=== PATIENT | male | born 1935 | race Caucasian/White ===

== ENCOUNTER → 2020-05-26 | Outpatient (CLI) | payer MEDICARE ==
[~2020-05-26] MED LIST: FLOM0.4C39 PO; ISOVUE-370 76% 100ML VIAL As Ordered ONE
--- NOTE | 2020-05-26 14:42 | REP ---
INDICATION: BLADDER MASS, GROSS HEMATURIA. COMPARISON: None TECHNIQUE: Axial precontrast, contrast-enhanced, and delayed images from the lung bases to the pubic symphysis using 100 cc Isovue 370 intravenous contrast material. Coronal and sagittal reformations obtained along with volume rendered 3D CT urogram. This CT examination was performed using the following dose reduction techniques: Automated exposure control, adjustment of mA and/or kv according to the patient's size, and the use of iterative reconstruction technique. FINDINGS: There is grade 5 left-sided hydroureteronephrosis secondary to a large obstructing partially enhancing bladder mass (7.6 x 3.3 x 6.5 cm) which demonstrates small amount of rim calcification and is otherwise nonspecific by appearance. The underlying prostate gland is mildly enlarged and cannot be differentiated from the mass itself raising the possibility of prosthetic origin. No significant adenopathy. The left kidney is otherwise relatively normal in appearance. The right kidney/ureter appears normal. No significant renal cystic changes or nephrolithiasis noted. Liver, spleen, pancreas, gallbladder, and bilateral adrenal glands are normal. The enteric system is without obstruction or acute inflammatory process. Colonic diverticula noted without acute diverticulitis. Pelvis demonstrates bladder and prostate as described above. Small fat containing inguinal hernia noted. No ascites. No obvious adenopathy. Atherosclerotic changes to the aorta and vasculature noted without aneurysm or dissection. Musculoskeletal structures demonstrate age-related osteopenia and degenerative changes. Lung bases demonstrate advanced emphysematous changes with scattered scarring as well as calcified pleural plaques raising the possibility of underlying asbestosis. Large hiatal hernia identified at the gastroesophageal junction. IMPRESSION: 1. Large bladder mass as described above causing left-sided grade 5 hydroureteronephrosis. The right kidney/ureter appear normal. 2. Large hiatal hernia. 3. Further nonacute findings as described above. <Electronically signed by Jacob Pina > 05/26/20 [id number]
== END ==
LOC: M RAD 13:27
PROVIDERS: ATTEND Urology
DX: N32.89 Other specified disorders of bladder (principal); R31.0 Gross hematuria; K44.9 Diaphragmatic hernia without obstruction or gangrene
CPT/HCPCS: 74178; Q9967

== ENCOUNTER 2020-06-07 08:46 | Day surgery (SDC) | payer MEDICARE ==
[~2020-06-07] VITALS: Ht 165.1 cm; Wt 60.7 kg
[~2020-06-07 08:46] MED LIST changes: -ISOVUE-370 76% 100ML VIAL As Ordered ONE; +LR 1,000 ML IV ONE; +ceFAZolin SOD 2 GM in IV 1 EA IV ONE
[2020-06-07] MEDS ORDERED: fentaNYL 100 MCG/2 ML INJECTION (J3010) As Ordered ONE ×2 (09:49→12:06)
[2020-06-07] MEDS ORDERED: ROCURONIUM BROMIDE 50 MG/5 ML VIAL As Ordered ONE (09:49)
[2020-06-07] MEDS ORDERED: METOCLOPRAMIDE INJ 10MG/2ML VIAL (J2765 PER 1) As Ordered ONE (09:49)
[2020-06-07] MEDS ORDERED: LIDOCAINE 2% 100MG/5ML SDV (FOR ANES.) As Ordered ONE (09:49)
[2020-06-07] MEDS ORDERED: propofoL 200 MG/20 ML VIAL As Ordered ONE (09:49)
[2020-06-07] MEDS ORDERED: ONDANSETRON 4MG/2ML VIAL As Ordered ONE (09:49)
[2020-06-07] MEDS ORDERED: LEVALBUTEROL 1.25 MG/0.5 ML CONCENTRATE NEB INH ONE (10:00)
[2020-06-07 10:14] LABS: INR 1.08; PROTHROMBIN TIME 14.2 SECONDS (12.5-14.3)
[2020-06-07 10:15] LABS: PARTIAL THROMBOPLASTIN TIME 25.1 SECONDS (24.2-38.5)
[2020-06-07] MEDS ORDERED: CONRAY-60 60% 50ML VIAL (Q9961) As Ordered ONE (15:12)
--- NOTE | 2020-06-07 16:03 | REP ---
INDICATION: SURGICAL PROCEDURE. COMPARISON: Comparison is made with CT study of the abdomen and pelvis May 26, 2020.. TECHNIQUE: Three views. 51 seconds of fluoroscopy time is reported. FINDINGS: A sequence of 3 last image hold fluoroscopically obtained spot radiographs of the abdomen document left ureteral cannulation, contrast injection, hydronephrosis, and double-pigtail stent placement. No visible laterality marker. IMPRESSION: Procedural imaging. <Electronically signed by Baljit Duke > 06/07/20 [id number]
[2020-06-07] MEDS ORDERED: oxyCODONE 5MG TAB PO PRN (16:30)
[2020-06-07] MEDS ORDERED: fentaNYL 100 MCG/2 ML INJECTION (J3010) IV PRN (16:30)
[2020-06-07] MEDS ORDERED: ONDANSETRON 4MG/2ML VIAL IV PRN (16:30)
[2020-06-07] MEDS ORDERED: ACETAMINOPHEN TAB 650MG DOSE (2X325MG) PO PRN (16:30)
[2020-06-07] MEDS ORDERED: LR 1,000 ML IV SCH (16:30)
--- NOTE | 2020-06-07 17:21 | RO ---
OPERATIVE NOTE DATE OF PROCEDURE: 06/07/2020 PREOPERATIVE DIAGNOSES: Bladder tumor, left hydronephrosis. POSTOPERATIVE DIAGNOSIS: Bladder tumor, left hydronephrosis. PROCEDURE: Cystoscopy, transurethral resection of bladder tumor (greater than 5 cm), left retrograde pyelogram with intraoperative interpreted images, left ureteral stent placement. SURGEON: Matthieu Lance MD BAND CUTTER: None. ANESTHESIA: General. OPERATIVE INDICATIONS: This is an 84-year-old male who was found to have a large bladder tumor on recent CT scan and office cystoscopy. He was brought to the operating room today for treatment. DESCRIPTION OF PROCEDURE: The patient was brought to the operating room and general anesthesia was induced. Prophylactic antibiotics were infused. He was placed in dorsal lithotomy position, prepped and draped in the usual sterile fashion. At this point, a resectoscope was inserted in the urethral meatus and advanced into the bladder using the visual obturator. Of note, as soon as the scope was at the level of the bladder neck, a large bladder tumor was seen and was taking up approximately half of the lumen if not more of the bladder. At this point, I began resecting the tumor carefully starting from the top down until the tumor was completely resected. Throughout the procedure, the tumor chips were removed using a Urovac evacuator. Once the tumor was completely resected, hemostasis was obtained using a plasma button. Of note, after resecting the tumor, I was ultimately able to identify the left ureteral orifice. I advanced a 5 Yemeni open ureteral catheter up the left ureteral orifice and a retrograde pyelogram was performed. It was notable for severe left hydroureteronephrosis with a very tortuous ureter. I then advanced a guidewire up the left kidney. The ureteral catheter was then removed. I then utilized the wire to advance a 7 Yemeni x 22-32 cm J-[id number] ureteral stent up the left collecting system. The wire was removed and there were adequate curls of the stent in the left renal pelvis and in the bladder. After this was done, I once again checked for hemostasis and cauterized any areas of bleeding using the plasma button. Once satisfied with hemostasis, the resectoscope was removed and an 18 Yemeni Balderas catheter was inserted into the bladder. The balloon was filled with 10 mL of sterile water and then the catheter was connected to gravity drainage. This marked the conclusion of the procedure. The patient was taken out of the dorsal lithotomy position, awakened from anesthesia and transported to the recovery room in stable condition. ESTIMATED BLOOD LOSS: 25 mL COMPLICATIONS: None. SPECIMENS: Bladder tumor. PLAN: The patient will follow up in urology clinic in about a week to discuss the pathology results. I will likely leave his catheter in for two weeks given the amount of resection. We will take his stent out in probably 2-3 weeks as well. JALEEL
[2020-06-07] MEDS ORDERED: OXYB5TAB10 PO (17:53)
[2020-06-07] MEDS ORDERED: oxyBUTYnin 5 MG TAB PO PRN (18:15)
[2020-06-07 19:25] VITALS: BP 128/70
== END 2020-06-07 19:25 | disposition home or self-care (01) ==
LOC: M SDC 08:46 → EDUNIT# 11:30 → M SDC 19:25
PROVIDERS: ATTEND Urology
DX: C67.9 Malignant neoplasm of bladder, unspecified (principal); N13.30 Unspecified hydronephrosis; N40.0 Benign prostatic hyperplasia without lower urinary tract symptoms; Z79.899 Other long term (current) drug therapy; Z87.891 Personal history of nicotine dependence
CPT/HCPCS: 36415; 52240; 52332; 74420; 85610; 85730; 86850; 86900; 86901; 88309; C1769; C1887; C2617; J0690; J2405; J2765; J3010; Q9961

== ENCOUNTER → 2020-07-06 | Outpatient (CLI) | payer MEDICARE ==
[~2020-07-06] MED LIST changes: +ALBU83IN INH; +FERR325T3 PO; -LR 1,000 ML IV ONE; +ONDA8TAB10 PO; +OXYB5TAB10 PO; +PROC10TA4 PO; -ceFAZolin SOD 2 GM in IV 1 EA IV ONE
--- NOTE | 2020-07-07 15:15 | REP ---
INDICATION: INITIAL STAGING BLADDER CANCER. Invasive high-grade papillary urothelial carcinoma. COMPARISON: Comparison CT study abdomen and pelvis May 26, 2020. Comparison chest CT study February 05, 2020.. TECHNIQUE: Fifty-one minutes following the intravenous injection of a 8.19 mCi dose of F-18 FDG, three-dimensional PET scintigraphy is acquired from the skull base to the proximal thighs. Triplanar noncontrast CT scanning is acquired through the same anatomic range for attenuation correction, and image registration with scan parameters optimized to minimize radiation exposure to the patient. PET scintigraphy and CT datasets were fused and displayed on a workstation with multiplanar and projection display capability. FINDINGS: Incidental findings include a new right inguinal hernia containing a loop of small intestine. There are few loops of air and fluid-filled small bowel in the central abdomen and the bowel gas pattern is felt to be consistent with small bowel obstruction. The gallbladder surgically absent. There is moderate hydronephrosis and hydroureter affecting the left kidney although this is improved. A sliding-type hiatal hernia is noted. 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 On PET scintigraphy images, head and neck soft tissues are unremarkable. There is no abnormal hypermetabolic pulmonary parenchymal nodule or mass. No hypermetabolic mediastinal or hilar lymphadenopathy is seen. In the abdomen, normal hepatic, splenic, gastrointestinal FDG accumulation is seen. There is a small quantity of postprocedural air in the renal pelvis on the left. There is no hypermetabolic pelvic adenopathy. Physiologic labeling of the urine in the bladder precludes scintigraphic evaluation of the urinary bladder. Accompanying CT study shows that most of the large bladder mass has apparently been resected. No abnormal skeletal hypermetabolic uptake is seen. IMPRESSION: No abnormal hypermetabolic uptake seen on scintigraphy. Improved left-sided hydronephrosis and improvement noted in the bladder mass. No scintigraphic evidence of metastasis. However, there is a new right inguinal hernia containing a small bowel loop and there appears to be evidence of small bowel obstruction. <Electronically signed by Baljit Duke > 07/07/20 [id number]
== END ==
LOC: M PLARAD 12:14
PROVIDERS: ATTEND Internal Medicine Medical Oncology
DX: C67.5 Malignant neoplasm of bladder neck (principal); N13.30 Unspecified hydronephrosis; K44.0 Diaphragmatic hernia with obstruction, without gangrene
CPT/HCPCS: 78815; A9552

== ENCOUNTER → 2020-07-07 | Outpatient (CLI) | payer MEDICARE ==
--- NOTE | 2020-07-07 11:28 | RADONC.CN ---
Radiation Oncology Hx/Consult Radiation Oncology Consult Date of Service: Jul 07, 2020 Pt Identifier Giacomo Romero is a 84 year old male with [id number] bladder cancer s/p TURBT on 06/07/[address] Lance. He is not a cystectomy candidate and so has been referred for consideration of chemoradiation. Diagnosis/Treatment History Oncologic History 2017 Presented to [place] urologist with abdominal pain and hematuria and underwent cystoscopy which revealed a bladder tumor. He was lost to follow up until 2019. He had a CT abdomen on 05/26/20 which showed a >7cm pedunculated mass in the bladder and associated hydronephrosis. He had TURBT on 06/07/20. Muscle invasion was identified on pathology. He had a staging PET-CT on 07/06/19 which is negative for distant disease. Has a large right inguinal hernia containing bowel. IPSS 25 [place] 1 Interval History He is here with his grandson. He has some mild abdominal pain, much better since the TURBT. His catheter has been removed and he is able to void spontaneously. He has a high IPSS, with weak stream a significant component. He has regular BMs but tends toward constipation. He denies fevers, chills, nausea and vomiting. He enjoys motorcycles. Has lost >20 lbs this year. Past Medical History: HTN Talcosis Past Surgical History: Cholecystectomy Family History: Mother pancreatic cancer Social History: 30 pack year former smoker Non-drinker Worked in a [employer] Allergies / Meds Allergies: Coded Allergies: No Known Allergies (Unverified , 05/26/20) Home Meds Active Scripts Ferrous Sulfate (Ferrous Sulfate) 325 Mg Tablet., 325 MG PO 3XW, #40 TAB 1 Refill Prov:ROSS CUNNINGHAM MD 06/22/20 Reported Medications Albuterol Sulf (Albuterol Sulfate) 2.5 Mg/3 Ml Vial.neb, 2.5 MG INH PRN, KITTY 06/22/20 Review of Systems Constitutional: Reports: Weight Loss; Denies: Chills, Fever, Night Sweats Eyes: Denies: Pain, Vision change HEENT: Denies: Head Aches, Dysphagia, Sore Throat Skin: Denies: Rash, Lesions, Bruising Pulmonary: Denies: Dyspnea, Cough Cardiovascular: Denies: Chest Pain, Palpitations, Edema Gastrointestinal: Reports: Abdominal Pain; Denies: Nausea, Vomiting, Diarrhea Genitourinary: Denies: Dysuria, Frequency, Incontinence Hematologic: Denies: Bruising, Petecchia, Enlarged Lymph Nodes Musculoskeletal: Denies: Neck pain, Back pain Neurological: Denies: Weakness, Numbness, Incoordination Psych: Reports: Mood Normal; Denies: Memory Issues, Thoughts of Self Harm Vital Signs Ht 67" Wt 147.6 lb BMI 23 T 99.2 P 73 RR 20 BP 129/77 O2 96% Pain 0 Fatigue 4 General Exam: Positive: Alert, Cooperative, No Acute Distress Eye Exam: Positive: PERRLA, EOMI ENT EXAM: Positive: Mucous membr. moist/pink, Pharynx Normal Neck Exam: Negative: Thyromegaly, Lymphadenopathy Chest Exam: Positive: Normal air movement; Negative: Rales, Rhonchi, Wheezing Heart Exam: Positive: Rate Normal, Regular Rhythm Abdomen Exam: Positive: Normal bowel sounds, Soft; Negative: Tenderness, Mass Extremity Exam: Negative: Edema, Tenderness Skin Exam: Positive: Nl turgor and temperature; Negative: Rash Neuro Exam: Positive: Normal Gait, Normal Speech, Cranial Nerves 3-12 NL Psych Exam: Positive: Mental status NL, Mood NL, Memory Intact Diagnostic and Laboratory Diagnostic Review Radiologic images, relevant labs and pathology reports were personally reviewed and discussed with Mr. Romero. Assessment and Plan Impression Mr. Romero is a 84 year old male former smoker with talc exposure and a history of [id number] bladder cancer s/p TURBT on 06/07/[address] Lance. He is not a cystectomy candidate and so has been referred for consideration of chemoradiation. Stage Stage II [id number] urothelial carcinoma Performance Status ECOG 1 Plan We had an extensive discussion with Mr. Romero regarding the diagnosis at hand and available therapeutic options. He had a very large tumor removed on 06/07/20 it was over [address] from 05/2020. He has no evidence of distant metastases on his PET-CT from 07/06/20. He is not a cystectomy candidate, therefore we discussed chemoradiation as his best option. I recommend 55 Gy in 20 fractions to the whole bladder, as there is no gross disease in the bladder or involved nodes to boost. VMAT is necessary in his case due to low lying small bowel as well as a large right inguinal hernia containing bowel that is in field. Chemotherapy is per Dr. Cunningham. We discussed the logistics of receiving radiation therapy in detail including the need for a 1-time planning session. This can occur in the next week. We discussed side effects including diarrhea, increased urinary frequency, and fatigue. After discussing the risks, benefits and alternatives to radiation therapy, Mr. Romero was amenable to pursuing radiotherapy. All questions were answered to the patient's satisfaction. We instructed the patient that if there were any questions,concerns or changes in clinical status in the interim to contact us. Recommendations Chemoradiation 55 Gy in 20 fractions with VMAT to spare bowel Simulation with empty bladder next week THOMPSON WILLIS MD Jul 07, 2020 11:28
== END ==
LOC: M ONCR 09:55
PROVIDERS: ATTEND General Practice
DX: C67.9 Malignant neoplasm of bladder, unspecified (principal)

== ENCOUNTER 2020-07-30 12:41 | Outpatient (RCR) | payer MEDICARE | END 2020-08-01 | LOC: M ONCR 12:41 | PROVIDERS: ATTEND General Practice | DX: C67.8 Malignant neoplasm of overlapping sites of bladder (principal) ==

== ENCOUNTER 2020-08-24 12:42 | Outpatient (RCR) | payer MEDICARE ==
--- NOTE | 2020-08-20 14:56 | RADENCPD ---
Date/Time of Encounter Date of Encounter: Aug 20, 2020 Time of Encounter: 14:53 Encounter Giacomo asked to be seen for concern of dysuria and frequency of 2 days duration. Going q1h, end stream burning. No fevers, chills, flank or abdominal pain. I am concerned he has a UTI, given his chemotherapy and radiation treatments to the bladder. UA confirms this: Item Value Date Time Urine Color YELLOW 08/20/207 Urine Yeast-Like Cells (Auto) SMALL H 08/20/20 1357 Urine Squamous Epithelial Cells 2 /HPF 08/20/20 1357 Urine Bacteria (Auto) 2+ H 08/20/20 1357 Urine Hyaline Casts (Auto) 0 /LPF 08/20/201356 Urine RBC (Auto) 49 /HPF H 08/20/201356 Urine WBC (Auto) TNTC /HPF H 08/20/20 135 Urine Leukocyte Esterase (Auto) 3+ H 08/20/201356 Urine Urobilinogen 0.2 mg/dL 08/20/20 1357 Urine Nitrite NEGATIVE 08/20/207 Urine Bilirubin NEGATIVE 08/20/207 Urine Blood NEGATIVE 08/20/201356 Urine Ketones (Auto) NEGATIVE mg/dL 08/20/201356 Urine Glucose (Auto)(UA) NEGATIVE mg/dL 08/20/201356 Urine Protein 3+ mg/dL H 08/20/207 Urine pH 5.0 UNITS 08/20/201356 Urine Specific [place] 1.020 08/20/201356 Urine Appearance TURBID H 08/20/20 1357 Will give Bactrim DS empiric (due to age, favor against cipro) 1 tab BID for 7 days Also start Flomax QPM AZO tabs PRN Ensure PO hydration Will reassess Sunday when culture available THOMPSON WILLIS MD Aug 20, 2020 14:56
[~2020-08-24 12:42] MED LIST changes: +BACT800T5 PO; +CINN500C15 PO
== END 2020-08-29 ==
LOC: M ONCR 12:42
PROVIDERS: ATTEND General Practice
DX: C67.8 Malignant neoplasm of overlapping sites of bladder (principal); Z79.899 Other long term (current) drug therapy

== ENCOUNTER 2020-09-28 13:38 | Inpatient (IN) | payer MEDICARE ==
[~2020-09-28] VITALS: Ht 172.7 cm; Wt 58.4 kg
[~2020-09-28 13:38] MED LIST changes: -IPRA0.00 NEB; -NITR100C2 PO; -PROAAER10 INH; -PT COMMENT; -SULF1TAB93; -TAMS1CAP17
[2020-09-28] MEDS ORDERED: NS 1,000 ML IV SCH (13:52)
[2020-09-28] MEDS ORDERED: NS 500 ML IV ONE (13:55)
[2020-09-28] MEDS ORDERED: ONDANSETRON 4MG/2ML VIAL IV ONE (13:55)
[2020-09-28] MEDS ORDERED: NITR100C2 PO (14:01)
[2020-09-28] MEDS ORDERED: TAMS1CAP17 (14:01)
[2020-09-28] MEDS ORDERED: SULF1TAB93 (14:01)
[2020-09-28] MEDS: MORPHINE 2 MG/ML 1ML VIAL (J2270) IV PRN ×2 (14:04→15:38)
[2020-09-28 14:24] LABS: BASO # 0.1 10^3/uL (0.0-0.2); BASO % 0.9 % (0.0-1.0); EOS # 0.2 10^3/uL (0.0-0.5); HEMATOCRIT 36.3 % (42.0-52.0); HEMOGLOBIN 11.7 g/dl (13.5-17.5); LYMPH # 0.6 10^3/uL (1.5-5.0); LYMPH % 9.5 % (24.0-44.0); MEAN CORPUSCULAR HEMOGLOBIN 30.2 pg (27.0-33.0); MEAN CORPUSCULAR HGB CONC 32.2 g/dl (32.0-36.5); MEAN CORPUSCULAR VOLUME 93.6 fl (80.0-96.0); MONO # 0.6 10^3/uL (0.0-0.8); MONO % 9.3 % (2.0-8.0); NEUTROPHILS # 4.9 10^3/uL (1.5-8.5); NEUTROPHILS % 76.4 % (36.0-66.0); PLATELET COUNT, AUTOMATED 353 10^3/uL (150-450); RED BLOOD COUNT 3.88 10^6/uL (4.30-6.10); WHITE BLOOD COUNT 6.4 10^3/uL (4.0-10.0)
--- NOTE | 2020-09-28 14:28 | REP ---
INDICATION: pelvic pain history of bladder carcinoma. COMPARISON: Comparison CT study May 26, 2020.. TECHNIQUE: Helical scanning is acquired in 4 mm axial images were reformatted. Coronal and sagittal MPR images were generated and reviewed. FINDINGS: Preliminary digital hr specialist radiograph shows an unremarkable bowel gas pattern. The lung bases show calcific pleural plaquing bilaterally consistent with previous asbestos exposure. There is evidence of COPD with on areas of honeycombing and pulmonary fibrosis in the bases as well. No pleural effusion or ascites is seen. Vascular calcification is observed. A moderate hiatal hernia is seen. No focal hepatic or splenic lesion is seen. There are some granulomatous calcifications in the liver. The gallbladder is surgically absent. No adrenal mass is observed. No abnormality is noted in the pancreas. There is moderate bilateral hydronephrosis and hydroureter. The dilated ureters are traced to the bladder. There is a Balderas catheter in the urinary bladder. There is some focal bladder wall calcification on the left. The usual bladder mass seen on May 26, 2020 has either been resected or regressed. There is a right inguinal hernia trans Cruz an air containing loop of what appears to be small intestine. The small intestinal loops proximal to this are slightly dilated the actual defect for this hernia it is difficult to see and it may be above the inguinal canal. This is a new finding. No evidence of retroperitoneal or pelvic adenopathy. There is no bony destructive lesion. IMPRESSION: 1. There is in air and fluid containing small bowel loop in an abdominal wall hernia which appears to be just above the inguinal canal on the right. Mildly obstructive changes. 2. Moderate bilateral hydronephrosis and hydroureter. 3. Balderas catheter in place. Bladder wall calcification. Previously noted bladder mass has been resected or has regressed. 4. Hiatal hernia <Electronically signed by Baljit Duke > 09/28/20 [id number]
[2020-09-28 14:50] LABS: ALBUMIN 3.2 GM/DL (3.2-5.2); BILIRUBIN,DIRECT 0.1 MG/DL (0.0-0.2); BILIRUBIN,TOTAL 0.2 MG/DL (0.2-1.0); TOTAL PROTEIN 6.6 GM/DL (6.4-8.2)
--- NOTE | 2020-09-28 15:12 | REP ---
INDICATION: pain. COMPARISON: None. TECHNIQUE: Standard scrotal ultrasound techniques with color imaging and Doppler tracings performed. FINDINGS: The right testis is 3.3 x 2.4 x 2.8 cm in the left 1.9 x 1.6 x 1.5 cm. This significantly smaller right testicle has been that way since a childhood injury according to the patient. Doppler tracing show color flow in both testes with resistive index 0.69 on the right and 0.45 on the left. Overall less flow on the left. The epididymis has a CC diameter of 5.4 mm the right and 6.8 mm on the left. Some moderate to large hydrocele on the right and none on the left. I do not see a varicocele. IMPRESSION: 1. Chronic atrophic changes noted in the left testis compared to the right with color flow and Doppler tracings for both testes. There is certainly more flow on the right side but I would not consider that abnormal. No evidence for torsion on the left. 2. Moderately large right-sided hydrocele. No varicocele. 3. No left-sided hydrocele or varicocele. 4. Epididymis fairly symmetric in size without mass or abnormal flow on color imaging. <Electronically signed by Sinan Donaldson > 09/28/20 [id number]
[2020-09-28 16:02] LABS: INR 0.99; PARTIAL THROMBOPLASTIN TIME 30.2 SECONDS (24.2-38.5); PROTHROMBIN TIME 13.3 SECONDS (12.5-14.3)
--- NOTE | 2020-09-28 16:18 | HPEPDOC ---
[facility] Medical History & Physical Date of Admission Sep 28, 2020 Date of Service: Sep 28, 2020 Attending Physician: Erica Michael MD History and Physical CHIEF COMPLAINT: Scrotal, penile pain HISTORY OF PRESENT ILLNESS: Patient is an 84 y/o M with PMH of bladder cancer s/p radiation and chemothe rapy, ? BPH, recurrent UTI with chronic indwelling bermudez catheter (placement not known), hx of right inguinal hernia s/p repair, intermittent scrotal/penile pain 2/2 to unknown cause, TYRA, other history below who presented today from oncology/radiation to be seen for severe penile/scrotal pain. Patient is a very poor historian so some information was gathered from him and other records on file. Per patient, he has had intermittent scrotal/penile and groin pain for some time. Pain is severe when present, intermittent, not always in the place but stays in the area of right groin, testes and penis. He has a chronic indwelling bermudez catheter (unknown when it was placed) for recurrent UTI and fo llows with urology (Dr. Lance) o/p. According to notes, patient has lost a total of 18 lbs in one month. Patient admits to falling, decreased appetite, unsteady gait, chronic SOB, dysuria, difficulty urinating without bermudez, intermittent dizziness, decreased appetite (eats one meal a day with Ensures sometimes), decreased PO intake of water (drinks total of 2 bottles of water a day). He denies chest pain, n/v, fevers, diarrhea. Due to his penile/scrotal pain, patient was sent to ER for further evaluation from radiation department. In the ER, VS were stable. CT abd/pelvis: There is in air and fluid containing small bowel loop in an abdominal wall hernia which appears to be just above the inguinal canal on the right, mildly obstructive changes, moderate bilateral hydronephrosis and hydroureter, bladder wall calcification, peviously noted bladder mass has been resected or has regressed. Scrotal US: neg for acute pathology. General surgery (Dr. Villegas) discussed case with ER attending, did not see need for surgical intervention, surgical concern from imaging. UA + for UTI, bermudez catheter changed as date of placement unknown. Urology was called and will see patient as admission. Patient was admitted for penile/scrotal pain possibly 2/2 to right inguinal hernia vs. neuropathic pain, bilateral hydronephrosis, UTI, weakness, ? failure to thrive. NOTE: Patient has cT2N0 invasive bladder cancer deemed not a candidate for cystectomy, S/p transurethral resection of bladder tumor greater than 5 cm andleft ureteral stent placement (06/07/2020). PET scan 07/06/2020: No abnormal hypermetabolic uptake seen on scintigraphy. Improved left-sided hydronephrosis and improvement noted in the bladder mass. No scintigraphic evidence of metastasis. Started concurrent chemotherapy RT 07/27/2020. Received cisplatin chemotherapy. Follows with Dr. Damon o/p. REVIEW OF SYSTEMS: Neg except for what was mentioned above. PAST MEDICAL/SURGICAL HISTORY: cT2N0 invasive bladder cancer deemed not a candidate for cystectomy, S/p transurethral resection of bladder tumor greater than 5 cm andleft ureteral stent placement (06/07/2020) TYRA Recurrent UTI Intermittent penile/scrotal pain 2/2 to inguinal hernia vs. neuropathic pain with recent surgery? vs. 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 BPH FAMILY HISTORY: Father: in MVA, 40's Mother: stomach issues. at 68 y/o SOCIAL HISTORY: Prior smoker for 15 years, 1 PPD. Quit >50 years ago. Denies alcohol use, drug use. Sees Dr. Damon med/onc, PCP Leigha, urology- Dr. Lance. DNR/DNI ALLERGIES: Please see below. HOME MEDICATIONS: Please see below. PHYSICAL EXAMINATION: VS: please see below, stable CONSTITUTIONAL: thin male, no acute distress, resting comfortably, AAO x 3 EYES: PERRLA, EOM intact HENT, MOUTH: Normocephalic, atraumatic, dry mucous membranes NECK: SUPPLE, no JVD, no lymphadenopathy, no carotid bruit CV: Regular rate and rhythm, S1S2 normal, no murmurs/rubs/gallops RESPIRATORY: some intermittent rhonchi otherwise Clear to auscultation bilaterally, no rales/wheezes GI: BS positive in 4 quadrants, soft, nontender, nondistended, no rebound or guarding, no organomegaly : Well healed scar in RL groin, bermudez catheter in place. No tenderness on palpation of scrotum or testes. MUSCULOSKELETAL: Normal ROM. No cyanosis, clubbing, swelling, joint deformity, extremity edema INTEGUMENTARY: Intact, no rashes, no lesions, no erythema NEUROLOGIC: Cranial Nerves II-XII are intact, no focal deficits PSYCHIATRIC: Mood and affect are normal LABORATORY DATA: Please see below IMAGING: Scrotal US: 1. Chronic atrophic changes noted in the left testis compared to the right with color flow and Doppler tracings for both testes. There is certainly more flow on the right side but I would not consider that abnormal. No evidence for torsion on the left. 2. Moderately large right-sided hydrocele. No varicocele. 3. No left-sided hydrocele or varicocele. 4. Epididymis fairly symmetric in size without mass or abnormal flow on color imaging. CT abd/pelvis: 1. There is in air and fluid containing small bowel loop in an abdominal wall hernia which appears to be just above the inguinal canal on the right. Mildly o bstructive changes. 2. Moderate bilateral hydronephrosis and hydroureter. 3. Bermudez catheter in place. Bladder wall calcification. Previously noted bladder mass has been resected or has regressed. 4. Hiatal hernia ASSESSMENT: 84 y/o M with PMH of bladder cancer s/p radiation and chemotherapy, recurrent UTI with chronic indwelling bermudez catheter (placement not known), hx of right inguinal hernia s/p repair, intermittent scrotal/penile pain 2/2 to unknown cause, TYRA admitted for penile/scrotal pain possibly 2/2 to right inguinal hernia vs. neuropathic pain, bilateral hydronephrosis, UTI, weakness, ? failure to thrive. PLAN: Intermittent penile/scrotal pain 2/2 to neuropathic pain with recent hernia surgery? vs. recurrent UTI's, chronic -Per patient this has happened for several months, states pain [place] in [place]" and is not present in the same place all the time -Severe 04/10 when present -CT abd/pelvis above, US scrotum above -Has chronic indwelling bermudez catheter, replaced today -UA + -Started on IV ceftriaxone, f/u UCx -Urology to evaluate UTI, recurrent and likely chronically colonized and has chronic indwelling bermudez catheter -Unknown date of last bermudez change, + dysuria -UA +, afebrile, WBC wnl -UCx pending -Due to dysuria will treat with Ceftriaxone for now, change bermudez today Bilateral hydronephrosis and hydroureter, believed to be chronic -Cr wnl -CT above -According to med/onc notes, hydronephrosis is chronic and was improving on the left side in 08/2020 -Monitor u/o -Urology to evaluate, follows with Dr. Lance normally Physical deconditioning, ? failure to thrive, weakness -Increased falls at home, decreased PO to fluids and food, cancer patient -PT/OT, nutritional assessment cT2N0 invasive bladder cancer -Per history deemed not a candidate for cystectomy -S/p transurethral resection of bladder tumor greater than 5 cm andleft ureteral stent placement (06/07/2020). -PET scan 07/06/2020: No abnormal hypermetabolic uptake seen on scintigraphy. Improvement noted in the bladder mass. No scintigraphic evidence of metastasis. -Started concurrent chemotherapy RT 07/27/2020. Received cisplatin chemotherapy. -Follows with Dr. Damon med/onc, Dr. Burger rad/onc as o/p TYRA, chronic -H/H stable -Daily CBC ? 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 Admitted as acute inpatient. Patient lives with sickly , will need PT/OT to evaluate prior to discharge. Vital Signs Vital Signs Date Time Temp Pulse Resp B/P (MAP) Pulse Ox O2 Delivery O2 Flow Rate FiO2 09/28/20 15:38 16 09/28/20 13:56 09/28/20 13:38 98.0 77 97 Room Air Laboratory Data Labs 24H Laboratory Tests 2 09/28/20 14:04: POC Glucose (Misc Panel) 112H, POC Sodium (Misc Panel) 137, POC Potassium (Misc Panel) 4.2, POC Chloride (Misc Panel) 102, POC Total CO2 (Misc Panel) 28.0H, POC Blood Urea Nitrogen (Misc Panel 32H, POC Ionized Calcium (Misc Panel) 5.5H, POC Creatinine (Misc Panel) 1.1, POC Hematocrit (Misc Panel) 37.0L 09/28/20 14:11: Immature Granulocyte % (Auto) 0.9, Neutrophils (%) (Auto) 76.4H, Lymphocytes (%) (Auto) 9.5L, Monocytes (%) (Auto) 9.3H, Eosinophils (%) (Auto) 3.0, Basophils (%) (Auto) 0.9, Neutrophils # (Auto) 4.9, Lymphocytes # (Auto) 0.6L, Monocytes # (Auto) 0.6, Eosinophils # (Auto) 0.2, Basophils # (Auto) 0.1, Nucleated Red Blood Cells % (auto) 0.0, Prothrombin Time 13.3, Prothromb Time International Ratio 0.99, Activated Partial Thromboplast Time 30.2, Total Bilirubin 0.2, Direct Bilirubin 0.1, Aspartate Amino Transf (AST/SGOT) 21, Alanine Aminotransferase (ALT/SGPT) 35, Alkaline Phosphatase 91, Total Protein 6.6, Albumin 3.2, Albumin/Globulin Ratio 0.9, Lipase 71L 09/28/20 14:59: Urine Color YELLOW, Urine Appearance HAZY, Urine pH 5.0, Urine Specific [place] 1.030, Urine Protein 3+H, Urine Glucose (UA) NEGATIVE, Urine Ketones NEGATIVE, Urine Blood 2+H, Urine Nitrite NEGATIVE, Urine Bilirubin NEGATIVE, Urine Urobilinogen 0.2, Urine Leukocyte Esterase 1+H, Urine WBC (Auto) 44H, Urine RBC (Auto) 100H, Urine Hyaline Casts (Auto) 0, Urine Bacteria (Auto) 1+H, Urine Squamous Epithelial Cells 0, Urine Mucus (Auto) SMALL, Urine Sperm (Auto) 09/28/20 15:40: CBC/BMP Laboratory Tests 09/28/20 14:11 Microbiology Microbiology 09/28/20 Urine Culture, Received Pending Home Medications Scheduled Ferrous Sulfate (Ferrous Sulfate) 325 Mg Tablet.dr, 325 MG PO 3XW Nitrofurantoin Monohyd/M-Cryst (Nitrofurantoin [place]verse-Mcr 100 mg) 100 Mg Capsule, 100 MG PO BID PT SHOULD HAVE COMPLETED THIS COURSE Tamsulosin HCl (Flomax) 0.4 Mg Capsule, 0.4 MG PO QHS Scheduled PRN Albuterol Sulfate (Proair Hfa) 8.5 Gm Hfa.aer.ad, 2 PUFF INH Q6H PRN for SHORTNESS OF BREATH Ipratropium/Albuterol Sulfate (Iprat-Albut 0.5-3(2.5) mg/3 ml) 3 Ml Ampul.neb, 1 KITTY NEB Q6H PRN for SHORTNESS OF BREATH Ondansetron HCl (Ondansetron HCl) 8 Mg Tablet, 8 MG PO Q12H PRN for NAUSEA OR VOMITING Prochlorperazine Maleate (Prochlorperazine Maleate) 10 Mg Tablet, 10 MG PO Q6H PRN for NAUSEA OR VOMITING Miscellaneous Medications Sulfamethoxazole/Trimethoprim (Sulfamethoxazole-Tmp Ds Tablet) 1 Each Tablet PT SHOULD HAVE COMPLETED THIS COURSE [Pt Comment] MED REC OBTAINED FROM [facility] AT PATIENT REQUEST Allergies Coded Allergies: No Known Allergies (Unverified , 08/04/20) A-FIB/CHADSVASC A-FIB History Current/History of A-Fib/PAF?: No Current PO Anticoag Therapy: No Age/Risk Factor Scoring CHADSVASC: CHADSVASC Response (Comments) Value Age Risk Factor Age >/= 75 years old 2 Gender Risk Factor Male 0 Hx of CHF No 0 Hx of HTN No 0 Hx of Stroke/TIA/or VTE No 0 Hx of Diabetes No 0 Hx of Vascular Disease No 0 Total 2 Treatment Treatment ordered: Other Other anticoagulant ordered: enoxaparin Erica Michael MD Sep 28, 2020 16:18
[2020-09-28 16:22] LABS: RSV AMPLIFICATION NEGATIVE (NEGATIVE)
[2020-09-28] MEDS ORDERED: PROAAER10 INH (16:24)
[2020-09-28] MEDS ORDERED: IPRA0.00 NEB (16:24)
[2020-09-28] MEDS ORDERED: FLOM0.4C39 PO (16:24)
[2020-09-28] MEDS ORDERED: PT COMMENT (16:29)
[2020-09-28] MEDS ORDERED: IPRATROPIUM 0.5MG/ALBUTEROL 2.5MG INH SOL UD 3ML (DUONEB) NEB PRN (16:55)
[2020-09-28] MEDS ORDERED: ALBUTEROL 90 MCG/ACT 8GM HFA INHALER INH PRN (16:55)
[2020-09-28] MEDS ORDERED: PROCHLORPERAZINE 5 MG TAB (S0183) PO PRN (16:55)
[2020-09-28] MEDS ORDERED: ONDANSETRON 4 MG TAB PO PRN (16:55)
[2020-09-28] MEDS ORDERED: cefTRIAXone SOD 1 GM in D5W MINI-BAG PLUS 50 ML IV SCH (17:00)
[2020-09-28] MEDS: ACETAMINOPHEN TAB 650MG DOSE (2X325MG) PO PRN ×2 (17:15→22:41)
[2020-09-28 18:12] VITALS: BP 141/83
[2020-09-28] MEDS: NS 1,000 ML IV SCH (18:49)
--- NOTE | 2020-09-28 19:33 | SMCUROLCON ---
Urology Consultation General Date of Consultation 09/28/20 Reason For Consultation This patient is seen for Failure To Thrive In Adult/Penile Pain. 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 That time was also found to have left hydronephrosis and left internal ureteral cath was placed. Subsequently the decision was made after metastatic workup was negative to undergo systemic chemotherapy and radiation therapy. Patient was deemed not to be a candidate for cystectomy. He has tolerated the radiation and chemotherapy fairly well. He came to the hospital this morning with severe lower abdominal right lower quadrant inguinal and scrotal pain. He is a bit of a difficult historian. He denies any fever. He's had no nausea no vomiting. At some point the decision was made for him to have a chronic indwelling Balderas catheter. On uncertain as to exactly why this was case. It is uncertain as to whether this is because of recurrent urinary tract infections, urinary retention or comfort measures so since receiving radiation and chemotherapy. CT imaging was performed which demonstrates a new onset of right hydroureteronephrosis. There is significant left hydroureteronephrosis and atrophy of the left kidney. CT imaging also demonstrates evidence of a hernia in the right lower quadrant of the abdomen. He has undergone a prior right inguinal hernia repair several years ago. Scrotal ultrasound performed which demonstrates an atrophic left testicle and a right hydrocele. Left term results demonstrate creatinine 1.1 BUN of 32. WBC is 6400, hematocrit is 36.3%, hemoglobin is 11.7 g. Patient is afebrile. He has had diminished intake of fluids and lack of appetite. He denies any flank pain or back pain. I attempted to discuss with the patient the finding of a new onset of right hydronephrosis as well as repeat development of left hydronephrosis following removal of prior left internal ureteral catheter I explained this time his renal function is normal but there may come a time when his renal function is impaired by the hydronephrosis and the decision about urinary diversion with either cystoscopy and placement of bilateral internal ureteral catheters for placement of bilateral [place] nephrostomy catheters. I'm uncertain whether the patient grasped the significance of this. Past medical history is remarkable for prior right inguinal hernia repair, anemia. At this time he states he is comfortable. Past Medical History Medical History As noted in the patient's chart Surgical Hstory Right inguinal hernia repair and TURBT Medications Current Medications Current Medications Medications (Trade) Dose Ordered Sig/Tegan Route PRN Reason Start Time Stop Time Status Last Admin Dose Admin Acetaminophen (Tylenol Tab) 650 mg Q4H PRN PO PAIN OR FEVER 09/28/20 15:30 09/28/20 17:15 Albuterol Sulfate (Proventil, Ventolin Hfa) 2 puff Q6HP PRN INH SHORTNESS OF BREATH 09/28/20 16:55 Albuterol/ Ipratropium (Duoneb (Ipr 0.5mg/Alb 2.5mg)) 3 ml Q6HP PRN NEB SHORTNESS OF BREATH 09/28/20 16:55 Ceftriaxone Sodium 1 gm/ Dextrose 50 ml @ 100 mls/hr Q24H IV 09/28/20 17:00 09/28/20 16:57 Enoxaparin Sodium (Lovenox) 30 mg DAILY SC 09/29/20 09:00 Home Med (Med Rec Complete!) ASDIRECTED XX 09/28/20 16:35 09/28/20 16:40 DC Morphine Sulfate (Morphine Sulfate Inj) 2 mg Q30M PRN IV MODERATE PAIN (PS 5-7) 09/28/20 13:55 09/28/20 15:38 DC 09/28/20 15:38 Ondansetron HCl (Zofran) 8 mg Q12HP PRN PO NAUSEA OR VOMITING 09/28/20 16:55 Prochlorperazine (Compazine) 10 mg Q6HP PRN PO NAUSEA OR VOMITING 09/28/20 16:55 Sodium Chloride 1,000 ml @ 100 mls/hr Q10H IV 09/28/20 13:52 09/28/20 14:04 Sodium Chloride 1,000 ml @ 100 mls/hr Q10H IV 09/28/20 16:55 Tamsulosin HCl (Flomax) 0.4 mg QHS PO 09/28/20 21:00 Allergies Allergies: Coded Allergies: No Known Allergies (Unverified , 08/04/20) Review of Systems General: Reports: ROS Unobtainable Physical Examination General Exam: Cooperative, Other EYE EXAM: PERRLA, EOMI Neck Exam: Supple; No: JVD, thyromegaly, Lymphadenopathy Chest Exam: Clear to auscultation Heart Exam: Rate Normal Abdomen Exam: Other (abdomen soft nontender nondistended. His right inguinal scar present. I can palpate no hernia.) Male Exam Small left testis which is nontender without masses there's a small right hydrocele present. Right testicle is without tenderness. Penis is without lesions. Balderas catheter is in place draining slightly blood-tinged urine Extremity Exam: No: Cyanosis, Edema, Tenderness, Swelling Skin Exam: Nl turgor and temperature Neuro Exam: Other (grossly intact) Vital Signs/I&O Vital Signs Date Time Temp Pulse Resp B/P (MAP) Pulse Ox O2 Delivery O2 Flow Rate FiO2 09/28/20 18:12 98.2 60 18 141/83 (102) 96 Room Air Laboratory Data 24H Labs Laboratory Tests 2 09/28/20 14:04: POC Glucose (Misc Panel) 112H, POC Sodium (Misc Panel) 137, POC Potassium (Misc Panel) 4.2, POC Chloride (Misc Panel) 102, POC Total CO2 (Misc Panel) 28.0H, POC Blood Urea Nitrogen (Misc Panel 32H, POC Ionized Calcium (Misc Panel) 5.5H, POC Creatinine (Misc Panel) 1.1, POC Hematocrit (Misc Panel) 37.0L 09/28/20 14:11: Immature Granulocyte % (Auto) 0.9, Neutrophils (%) (Auto) 76.4H, Lymphocytes (%) (Auto) 9.5L, Monocytes (%) (Auto) 9.3H, Eosinophils (%) (Auto) 3.0, Basophils (%) (Auto) 0.9, Neutrophils # (Auto) 4.9, Lymphocytes # (Auto) 0.6L, Monocytes # (Auto) 0.6, Eosinophils # (Auto) 0.2, Basophils # (Auto) 0.1, Nucleated Red Blood Cells % (auto) 0.0, Prothrombin Time 13.3, Prothromb Time International Ratio 0.99, Activated Partial Thromboplast Time 30.2, Total Bilirubin 0.2, Direct Bilirubin 0.1, Aspartate Amino Transf (AST/SGOT) 21, Alanine Aminotransferase (ALT/SGPT) 35, Alkaline Phosphatase 91, Total Protein 6.6, Albumin 3.2, Albumin/Globulin Ratio 0.9, Lipase 71L 09/28/20 14:59: Urine Color YELLOW, Urine Appearance HAZY, Urine pH 5.0, Urine Specific [place] 1.030, Urine Protein 3+H, Urine Glucose (UA) NEGATIVE, Urine Ketones NEGATIVE, Urine Blood 2+H, Urine Nitrite NEGATIVE, Urine Bilirubin NEGATIVE, Urine Urobilinogen 0.2, Urine Leukocyte Esterase 1+H, Urine WBC (Auto) 44H, Urine RBC (Auto) 100H, Urine Hyaline Casts (Auto) 0, Urine Bacteria (Auto) 1+H, Urine Squamous Epithelial Cells 0, Urine Mucus (Auto) SMALL, Urine Sperm (Auto) 09/28/20 15:40: Coronavirus (COVID-19)(PCR) NEGATIVE, Influenza Type A (RT-PCR) NEGATIVE, Influenza Type B (RT-PCR) NEGATIVE, Respiratory Syncytial Virus (PCR) NEGATIVE CBC/BMP Laboratory Tests 09/28/20 14:11 Microbiology Microbiology 09/28/20 Urine Culture, Received Pending Assessment 1. Right inguinal and penile and scrotal pain etiology unclear possibly related to right inguinal hernia noted on CT imaging but not present on exam at this time 2. 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 Bilateral hydronephrosis, new onset right redevelopment of left with prior stent removal on left, remarkable for normal serum creatinine at this time and concerned about possible development of obstructive uropathy with diminished renal function over time 4. Probable dehydration Plan 1. Observation, IV fluids administration 2. I discussed with the patient the new finding of bilateral hydronephrosis and the potential impact on his overall renal function. A decision will need to be made in consultation with medical oncology regarding the need for urinary diversion by either cystoscopy and placement of bilateral internal ureteral catheters were bilateral nephrostomy placement. In view of his recent bladder tumor resection, radiation therapy and chronic indwelling Balderas catheter it may be difficult to visualize ureteral orifice is on both sides in order to place retrograde internal ureteral catheters. If this is not possible then bilateral precarious nephrostomy tubes would be the next option to preserve renal function if this is of course management the patient wishes to pursue. Time Spent on Consult: Time Spent / Consult (Minutes): 20 VITALIY OCHOA MD Sep 28, 2020 19:33
[2020-09-28] MEDS: TAMSULOSIN 0.4 MG CAP PO SCH (20:15)
[2020-09-28 22:00] VITALS: BP 112/69
[2020-09-28] MEDS ORDERED: MORPHINE 2 MG/ML 1ML VIAL (J2270) IV ONE (23:40)
[2020-09-29] MEDS: NS 1,000 ML IV SCH ×3 (03:30→22:35)
[2020-09-29] MEDS: ACETAMINOPHEN TAB 650MG DOSE (2X325MG) PO PRN (05:56)
[2020-09-29 06:00] VITALS: BP 116/73
[2020-09-29 07:05] LABS: HEMOGLOBIN 10.9 g/dl (13.5-17.5); MEAN CORPUSCULAR HEMOGLOBIN 30.4 pg (27.0-33.0); MEAN CORPUSCULAR HGB CONC 32.1 g/dl (32.0-36.5); PLATELET COUNT, AUTOMATED 323 10^3/uL (150-450); RED BLOOD COUNT 3.58 10^6/uL (4.30-6.10); WHITE BLOOD COUNT 7.1 10^3/uL (4.0-10.0)
[2020-09-29 07:33] LABS: ALBUMIN 2.8 GM/DL (3.2-5.2); ALT/SGPT 25 U/L (12-78); BILIRUBIN,TOTAL 0.2 MG/DL (0.2-1.0); BLOOD UREA NITROGEN 20 MG/DL (7-18); CALCIUM LEVEL 9.6 MG/DL (8.8-10.2); CARBON DIOXIDE LEVEL 27 MEQ/L (21-32); CHLORIDE LEVEL 108 MEQ/L (98-107); GLOMERULAR FILTRATION RATE > 60.0 (>35); GLUCOSE, FASTING 92 MG/DL (70-100); POTASSIUM SERUM 4.2 MEQ/L (3.5-5.1); SODIUM LEVEL 140 MEQ/L (136-145); TOTAL PROTEIN 5.8 GM/DL (6.4-8.2)
[2020-09-29] MEDS: ENOXAPARIN 30MG/0.3ML SYRINGE (J1650 PER 10MG) SC SCH (07:59)
--- NOTE | 2020-09-29 08:18 | IPNPDOC ---
Subjective Review oF Systems Chief Complaint The patient is a 84-year-old male admitted with a reason for visit of Failure To Thrive In Adult/Penile Pain. Events since Last Encounter Patient states he is having slightly less pain this morning. Final surgery of patient being afebrile since admission Today's labs demonstrate creatinine 0.9, BUN of 20, WBC is 7100, hemoglobin is 10.9 g, hematocrit is 34% Urine culture obtained from Balderas catheter results are pending Objective Physical Examination General Exam: Other (thin pale frail appearing male lying in bed in no acute distress) Vital Signs/I&O Vital Signs Date Time Temp Pulse Resp B/P (MAP) Pulse Ox O2 Delivery O2 Flow Rate FiO2 09/29/20 06:00 98.0 71 18 116/73 (87) 93 Room Air I&O- Last 24 Hours up to 6 AM 09/29/20 06:00 Intake Total 3690 ml Output Total 1450 ml Balance 2240 ml Laboratory Data Labs 24H Laboratory Tests 2 09/28/20 14:04: POC Glucose (Misc Panel) 112H, POC Sodium (Misc Panel) 137, POC Potassium (Misc Panel) 4.2, POC Chloride (Misc Panel) 102, POC Total CO2 (Misc Panel) 28.0H, POC Blood Urea Nitrogen (Misc Panel 32H, POC Ionized Calcium (Misc Panel) 5.5H, POC Creatinine (Misc Panel) 1.1, POC Hematocrit (Misc Panel) 37.0L 09/28/20 14:11: Immature Granulocyte % (Auto) 0.9, Neutrophils (%) (Auto) 76.4H, Lymphocytes (%) (Auto) 9.5L, Monocytes (%) (Auto) 9.3H, Eosinophils (%) (Auto) 3.0, Basophils (%) (Auto) 0.9, Neutrophils # (Auto) 4.9, Lymphocytes # (Auto) 0.6L, Monocytes # (Auto) 0.6, Eosinophils # (Auto) 0.2, Basophils # (Auto) 0.1, Nucleated Red Blood Cells % (auto) 0.0, Prothrombin Time 13.3, Prothromb Time International Ratio 0.99, Activated Partial Thromboplast Time 30.2, Total Bilirubin 0.2, Direct Bilirubin 0.1, Aspartate Amino Transf (AST/SGOT) 21, Alanine Aminotransferase (ALT/SGPT) 35, Alkaline Phosphatase 91, Total Protein 6.6, Albumin 3.2, Albumin/Globulin Ratio 0.9, Lipase 71L 09/28/20 14:59: Urine Color YELLOW, Urine Appearance HAZY, Urine pH 5.0, Urine Specific [place] 1.030, Urine Protein 3+H, Urine Glucose (UA) NEGATIVE, Urine Ketones NEGATIVE, Urine Blood 2+H, Urine Nitrite NEGATIVE, Urine Bilirubin NEGATIVE, Urine Urobilinogen 0.2, Urine Leukocyte Esterase 1+H, Urine WBC (Auto) 44H, Urine RBC (Auto) 100H, Urine Hyaline Casts (Auto) 0, Urine Bacteria (Auto) 1+H, Urine S quamous Epithelial Cells 0, Urine Mucus (Auto) SMALL, Urine Sperm (Auto) 09/28/20 15:40: Coronavirus (COVID-19)(PCR) NEGATIVE, Influenza Type A (RT-PCR) NEGATIVE, Influenza Type B (RT-PCR) NEGATIVE, Respiratory Syncytial Virus (PCR) NEGATIVE 09/29/20 06:35: Nucleated Red Blood Cells % (auto) 0.0, Anion Gap 5L, Glomerular Filtration Rate > 60.0, Calcium Level 9.6, Total Bilirubin 0.2, Aspartate Amino Transf (AST/SGOT) 18, Alanine Aminotransferase (ALT/SGPT) 25, Alkaline Phosphatase 76, Total Protein 5.8L, Albumin 2.8L, Albumin/Globulin Ratio 0.9 CBC/BMP Laboratory Tests 09/28/20 14:11 09/29/20 06:35 Microbiology Microbiology 09/28/20 Urine Culture, Received Pending Assessment/Plan Date Seen The patient was seen on 09/29/20. Patient Summary Assessment: 1. Penile scrotal inguinal pain, etiology not clear, possibly related to abdominal wall hernia 2. Bilateral hydronephrosis with normal renal function at this time, possibly secondary to obstruction distal ureters by tumor or radiation induced edema 3. 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 Recommend careful observation at this time. 2. At some point will need to discuss the options for urinary diversion. It is likely that upper tract obstruction will become more of a problem and ultimately renal function will be affected by this. VITALIY OCHOA MD Sep 29, 2020 08:18
--- NOTE | 2020-09-29 12:59 | IPNPDOC ---
Date Seen The patient was seen on 09/29/20. Progress Note SUBJECTIVE: Complains of intermittent penile, right groin pain 10/10 at times, worse with movement. Per patient and his grandson who helps care for him patient has had this pain even prior to his last right inguinal hernia repair 08/2019 (date unknown, requesting recent records from [facility]) but after the radiation he received for bladder cancer. He is no longer getting chem or radiation. PT/OT to evaluate. OBJECTIVE: PHYSICAL EXAMINATION: VS: please see below, stable CONSTITUTIONAL: thin male, no acute distress, resting comfortably, AAO x 3 EYES: PERRLA, EOM intact HENT, MOUTH: Normocephalic, atraumatic, dry mucous membranes NECK: SUPPLE, no JVD, no lymphadenopathy, no carotid bruit CV: Regular rate and rhythm, S1S2 normal, no murmurs/rubs/gallops RESPIRATORY: some intermittent rhonchi otherwise o rales/wheezes GI: BS positive in 4 quadrants, soft, nontender, nondistended, no rebound or guarding, no organomegaly : Well healed scar in RL groin, bermudez catheter in place. No tenderness on palpation of scrotum or testes. MUSCULOSKELETAL: Normal ROM. No cyanosis, clubbing, swelling, joint deformity, extremity edema INTEGUMENTARY: Intact, no rashes, no lesions, no erythema NEUROLOGIC: Cranial Nerves II-XII are intact, no focal deficits PSYCHIATRIC: Mood and affect are normal LABORATORY DATA: Please see below IMAGING: Scrotal US: 1. Chronic atrophic changes noted in the left testis compared to the right with color flow and Doppler tracings for both testes. There is certainly more flow on the right side but I would not consider that abnormal. No evidence for torsion on the left. 2. Moderately large right-sided hydrocele. No varicocele. 3. No left-sided hydrocele or varicocele. 4. Epididymis fairly symmetric in size without mass or abnormal flow on color imaging. CT abd/pelvis: 1. There is in air and fluid containing small bowel loop in an abdominal wall hernia which appears to be just above the inguinal canal on the right. Mildly obstruc tive changes. 2. Moderate bilateral hydronephrosis and hydroureter. 3. Bermudez catheter in place. Bladder wall calcification. Previously noted bladder mass has been resected or has regressed. 4. Hiatal hernia ASSESSMENT: 84 y/o M with PMH of bladder cancer s/p radiation and chemotherapy, recurrent UTI with chronic indwelling bermudez catheter (placement not known), hx of right inguinal hernia s/p repair, intermittent scrotal/penile pain 2/2 to unknown cause, TYRA admitted for penile/scrotal pain possibly 2/2 to right inguinal hernia vs. neuropathic pain, bilateral hydronephrosis, UTI, weakness, ? failure to thrive. PLAN: Intermittent penile/scrotal pain 2/2 to neuropathic pain (incision induced vs. radiation induced?) vs. pain associated with recent hernia surgery/hernia. Lower differential: bladder spasms -Per patient this has happened for several months even prior to recent hernia surgery, states pain travels in "[place]", intermittent, severe 04/10 when present -CT abd/pelvis above, US scrotum above -Has chronic indwelling bermudez catheter, replaced 09/28/20 -UA + but UCx neg. -Per urologist, because lower on differential with bladder spasms, do not treat currently -Requesting records from [facility] today from recent hospitalization. Per grandson, nobody has been able to give clear cause,diagnosis of penile pain -Starting gabapentin 100 mg PO BID and tramadol PRN, tylenol PRN UTI, recurrent and likely chronically colonized and has chronic indwelling bermudez catheter -Changed bermudez 09/01/20 -UA +, afebrile, WBC wnl, UCx NG -Stopping Ceftriaxone today , resuming home nitrofurantoin Bilateral hydronephrosis and hydroureter possibly secondary to obstruction distal ureters by tumor or radiation induced edema -Cr wnl -CT above -According to med/onc notes, hydronephrosis is chronic and was improving on the left side in 08/2020 -Monitor u/o -Urology: A decision will need to be made in consultation with medical oncology regarding the need for urinary diversion by either cystoscopy and placement of bilateral internal ureteral catheters were bilateral nephrostomy placement. In view of his recent bladder tumor resection, radiation therapy and chronic indwelling Bermudez catheter it may be difficult to visualize ureteral orifice is on both sides in order to place retrograde internal ureteral catheters. If this is not possible then bilateral precarious nephrostomy tubes would be the next option to preserve renal function if this is of course management the patient wishes to pursue. -F/u with urology, med/onc after discharge Physical deconditioning, ? failure to thrive, weakness -Increased falls at home, decreased PO to fluids and food, cancer patient -PT/OT, nutritional assessment cT2N0 invasive bladder cancer -Per history deemed not a candidate for cystectomy -S/p transurethral resection of bladder tumor greater than 5 cm andleft ureteral stent placement (06/07/2020). -PET scan 07/06/2020: No abnormal hypermetabolic uptake seen on scintigraphy. Improvement noted in the bladder mass. No scintigraphic evidence of metastasis. -Started concurrent chemotherapy RT 07/27/2020. Received cisplatin chemotherapy. Per grandson, no longer getting either treatment -Follows with Dr. Damon med/onc, Dr. Burger rad/onc as o/p TYRA, chronic -H/H stable -Daily CBC ? 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 Patient lives with sickly , will need PT/OT to evaluate prior to discharge. Awaiting [facility] records VS, I&O, 24H, [facility] Vital Signs/I&O Vital Signs Date Time Temp Pulse Resp B/P (MAP) Pulse Ox O2 Delivery O2 Flow Rate FiO2 09/29/20 06:00 98.0 71 18 116/73 (87) 93 Room Air I&O- Last 24 Hours up to 6 AM 09/29/20 05:59 Intake Total 2890 ml Output Total 1450 ml Balance 1440 ml Laboratory Data 24H LABS Laboratory Tests 2 09/28/20 14:04: POC Glucose (Misc Panel) 112H, POC Sodium (Misc Panel) 137, POC Potassium (Misc Panel) 4.2, POC Chloride (Misc Panel) 102, POC Total CO2 (Misc Panel) 28.0H, POC Blood Urea Nitrogen (Misc Panel 32H, POC Ionized Calcium (Misc Panel) 5.5H, POC Creatinine (Misc Panel) 1.1, POC Hematocrit (Misc Panel) 37.0L 09/28/20 14:11: Immature Granulocyte % (Auto) 0.9, Neutrophils (%) (Auto) 76.4H, Lymphocytes (%) (Auto) 9.5L, Monocytes (%) (Auto) 9.3H, Eosinophils (%) (Auto) 3.0, Basophils (%) (Auto) 0.9, Neutrophils # (Auto) 4.9, Lymphocytes # (Auto) 0.6L, Monocytes # (Auto) 0.6, Eosinophils # (Auto) 0.2, Basophils # (Auto) 0.1, Nucleated Red Blood Cells % (auto) 0.0, Prothrombin Time 13.3, Prothromb Time International Ratio 0.99, Activated Partial Thromboplast Time 30.2, Total Bilirubin 0.2, Direct Bilirubin 0.1, Aspartate Amino Transf (AST/SGOT) 21, Alanine Aminotransferase (ALT/SGPT) 35, Alkaline Phosphatase 91, Total Protein 6.6, Albumin 3.2, Albumin/Globulin Ratio 0.9, Lipase 71L 09/28/20 14:59: Urine Color YELLOW, Urine Appearance HAZY, Urine pH 5.0, Urine Specific [place] 1.030, Urine Protein 3+H, Urine Glucose (UA) NEGATIVE, Urine Ketones NEGATIVE, Urine Blood 2+H, Urine Nitrite NEGATIVE, Urine Bilirubin NEGATIVE, Urine Urobilinogen 0.2, Urine Leukocyte Esterase 1+H, Urine WBC (Auto) 44H, Urine RBC (Auto) 100H, Urine Hyaline Casts (Auto) 0, Urine Bacteria (Auto) 1+H, Urine Squamous Epithelial Cells 0, Urine Mucus (Auto) SMALL, Urine Sperm (Auto) 09/28/20 15:40: Coronavirus (COVID-19)(PCR) NEGATIVE, Influenza Type A (RT-PCR) NEGATIVE, Influenza Type B (RT-PCR) NEGATIVE, Respiratory Syncytial Virus (PCR) NEGATIVE 09/29/20 06:35: Nucleated Red Blood Cells % (auto) 0.0, Anion Gap 5L, Glomerular Filtration Rate > 60.0, Calcium Level 9.6, Total Bilirubin 0.2, Aspartate Amino Transf (AST/SGOT) 18, Alanine Aminotransferase (ALT/SGPT) 25, Alkaline Phosphatase 76, Total Protein 5.8L, Albumin 2.8L, Albumin/Globulin Ratio 0.9 09/29/20 10:46: Lab Scanned Report Miscellaneous Lab CBC/BMP Laboratory Tests 09/28/20 14:11 09/29/20 06:35 Microbiology Microbiology 09/28/20 Urine Culture - Final, Complete Current Medications Current Medications Medications (Trade) Dose Ordered Sig/Tegan Route PRN Reason Start Time Stop Time Status Last Admin Dose Admin Acetaminophen (Tylenol Tab) 650 mg Q4H PRN PO PAIN OR FEVER 09/28/20 15:30 09/29/20 05:56 Albuterol Sulfate (Proventil, Ventolin Hfa) 2 puff Q6HP PRN INH SHORTNESS OF BREATH 09/28/20 16:55 Albuterol/ Ipratropium (Duoneb (Ipr 0.5mg/Alb 2.5mg)) 3 ml Q6HP PRN NEB SHORTNESS OF BREATH 09/28/20 16:55 Ceftriaxone Sodium 1 gm/ Dextrose 50 ml @ 100 mls/hr Q24H IV 09/28/20 17:00 09/29/20 12:59 DC 09/28/20 16:57 Enoxaparin Sodium (Lovenox) 30 mg DAILY SC 09/29/20 09:00 09/29/20 07:59 Home Med (Med Rec Complete!) ASDIRECTED XX 09/28/20 16:35 09/28/20 16:40 DC Morphine Sulfate (Morphine Sulfate Inj) 2 mg Q30M PRN IV MODERATE PAIN (PS 5-7) 09/28/20 13:55 09/28/20 15:38 DC 09/28/20 15:38 Nitrofurantoin Monoh/Nitrofur Macro (Macrobid) 100 mg BID PO 09/29/20 21:00 UNV Ondansetron HCl (Zofran) 8 mg Q12HP PRN PO NAUSEA OR VOMITING 09/28/20 16:55 Prochlorperazine (Compazine) 10 mg Q6HP PRN PO NAUSEA OR VOMITING 09/28/20 16:55 Sodium Chloride 1,000 ml @ 100 mls/hr Q10H IV 09/28/20 13:52 09/28/20 23:51 DC 09/28/20 14:04 Sodium Chloride 1,000 ml @ 100 mls/hr Q10H IV 09/28/20 16:55 09/29/20 12:43 Tamsulosin HCl (Flomax) 0.4 mg QHS PO 09/28/20 21:00 09/28/20 20:15 Allergies Coded Allergies: No Known Allergies (Unverified , 08/04/20) Erica Michael MD Sep 29, 2020 12:59
[2020-09-29 14:00] VITALS: BP 117/73
[2020-09-29] MEDS: NITROFURANTOIN (MACROBID) 100 MG CAP PO SCH ×2 (15:36→20:02)
[2020-09-29] MEDS: GABAPENTIN 100 MG CAP PO SCH ×2 (15:36→20:02)
[2020-09-29] MEDS: TAMSULOSIN 0.4 MG CAP PO SCH (20:02)
[2020-09-29] MEDS: traMADol 50 MG TAB PO PRN (20:03)
[2020-09-29 22:00] VITALS: BP 116/73
[2020-09-30 06:00] VITALS: BP 116/73
[2020-09-30 06:36] LABS: HEMATOCRIT 32.6 % (42.0-52.0); HEMOGLOBIN 10.3 g/dl (13.5-17.5); MEAN CORPUSCULAR HEMOGLOBIN 29.8 pg (27.0-33.0); MEAN CORPUSCULAR HGB CONC 31.6 g/dl (32.0-36.5); MEAN CORPUSCULAR VOLUME 94.2 fl (80.0-96.0); PLATELET COUNT, AUTOMATED 309 10^3/uL (150-450); RED BLOOD COUNT 3.46 10^6/uL (4.30-6.10); WHITE BLOOD COUNT 6.1 10^3/uL (4.0-10.0)
[2020-09-30 07:03] LABS: ALBUMIN 2.6 GM/DL (3.2-5.2); ALT/SGPT 23 U/L (12-78); BILIRUBIN,TOTAL 0.2 MG/DL (0.2-1.0); BLOOD UREA NITROGEN 15 MG/DL (7-18); CALCIUM LEVEL 8.9 MG/DL (8.8-10.2); CARBON DIOXIDE LEVEL 23 MEQ/L (21-32); CHLORIDE LEVEL 111 MEQ/L (98-107); GLOMERULAR FILTRATION RATE > 60.0 (>35); GLUCOSE, FASTING 79 MG/DL (70-100); POTASSIUM SERUM 4.2 MEQ/L (3.5-5.1); SODIUM LEVEL 142 MEQ/L (136-145); TOTAL PROTEIN 5.5 GM/DL (6.4-8.2)
--- NOTE | 2020-09-30 08:42 | IPNPDOC ---
Subjective Review oF Systems Chief Complaint The patient is a 84-year-old male admitted with a reason for visit of Failure To Thrive In Adult/Penile Pain. Events since Last Encounter The patient has no complaints this morning. He states his pain is mild at this point. The Balderas catheter is in place draining clear AFEBRILE LAST 24 HOURS Morning labs: Creatinine is 0.9, BUN is 15 At some point decision will need to be made about whether to intervene regarding patient's bilateral hydronephrosis. It is quite amazing that his renal function as measured by blood test has not been affected this point. Objective Physical Examination General Exam: Other (thin pale frail appearing male lying in bed in no acute distress) Vital Signs/I&O Vital Signs Date Time Temp Pulse Resp B/P (MAP) Pulse Ox O2 Delivery O2 Flow Rate FiO2 09/30/20 06:00 97.5 63 18 116/73 (87) 94 Room Air I&O- Last 24 Hours up to 6 AM 09/30/20 06:00 Intake Total 3090 ml Output Total 2050 ml Balance 1040 ml Laboratory Data Labs 24H Laboratory Tests 2 09/29/20 10:46: Lab Scanned Report Miscellaneous Lab 09/30/20 05:44: Nucleated Red Blood Cells % (auto) 0.0, Anion Gap 8, Glomerular Filtration Rate > 60.0, Calcium Level 8.9, Total Bilirubin 0.2, Aspartate Amino Transf (AST/SGOT) 19, Alanine Aminotransferase (ALT/SGPT) 23, Alkaline Phosphatase 74, Total Protein 5.5L, Albumin 2.6L, Albumin/Globulin Ratio 0.9 CBC/BMP Laboratory Tests 09/30/20 05:44 Microbiology Microbiology 09/28/20 Urine Culture - Final, Complete Assessment/Plan Date Seen The patient was seen on 09/30/20. 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
[2020-09-30] MEDS: NITROFURANTOIN (MACROBID) 100 MG CAP PO SCH ×2 (09:38→20:14)
[2020-09-30] MEDS: GABAPENTIN 100 MG CAP PO SCH ×2 (09:38→20:14)
[2020-09-30] MEDS: NS 1,000 ML IV SCH ×2 (09:39→18:17)
[2020-09-30] MEDS: ENOXAPARIN 30MG/0.3ML SYRINGE (J1650 PER 10MG) SC SCH (09:39)
[2020-09-30 14:00] VITALS: BP 149/81
--- NOTE | 2020-09-30 18:56 | IPNPDOC ---
Date Seen The patient was seen on 09/30/20. Progress Note SUBJECTIVE: Patient still complaining of intermittent penile, right groin pain. Just started gabapentin, tramadol on 09/29. Records from [facility] not received yet, placed another request today per community relations specialist. He denies chest pain, shortness of breath, n/v/d. OBJECTIVE: PHYSICAL EXAMINATION: VS: please see below, stable CONSTITUTIONAL: thin male, no acute distress, resting comfortably, AAO x 3 EYES: PERRLA, EOM intact HENT, MOUTH: Normocephalic, atraumatic, dry mucous membranes NECK: SUPPLE, no JVD, no lymphadenopathy, no carotid bruit CV: Regular rate and rhythm, S1S2 normal, no murmurs/rubs/gallops RESPIRATORY: some intermittent rhonchi otherwise o rales/wheezes GI: BS positive in 4 quadrants, soft, nontender, nondistended, no rebound or guarding, no organomegaly : Well healed scar in RL groin, bermudez catheter in place. No tenderness on palpation of scrotum or testes or right groin. MUSCULOSKELETAL: Normal ROM. No cyanosis, clubbing, swelling, joint deformity, extremity edema INTEGUMENTARY: Intact, no rashes, no lesions, no erythema NEUROLOGIC: Cranial Nerves II-XII are intact, no focal deficits PSYCHIATRIC: Mood and affect are normal LABORATORY DATA: Please see below IMAGING: Scrotal US: 1. Chronic atrophic changes noted in the left testis compared to the right with color flow and Doppler tracings for both testes. There is certainly more flow on the right side but I would not consider that abnormal. No evidence for torsion on the left. 2. Moderately large right-sided hydrocele. No varicocele. 3. No left-sided hydrocele or varicocele. 4. Epididymis fairly symmetric in size without mass or abnormal flow on color imaging. CT abd/pelvis: 1. There is in air and fluid containing small bowel loop in an abdominal wall hernia which appears to be just above the inguinal canal on the right. Mildly obstructive changes. 2. Moderate bilateral hydronephrosis and hydroureter. 3. Bermudez catheter in place. Bladder wall calcification. Previously noted bladder mass has been resected or has regressed. 4. Hiatal hernia ASSESSMENT: 84 y/o M with PMH of bladder cancer s/p radiation and chemotherapy, recurrent UTI with chronic indwelling bermudez catheter (placement not known), hx of right inguinal hernia s/p repair, intermittent scrotal/penile pain 2/2 to unknown cause, TYRA admitted for penile/scrotal pain possibly 2/2 to right inguinal hernia vs. neuropathic pain, bilateral hydronephrosis, UTI, weakness, ? failure to thrive. PLAN: Intermittent penile/scrotal pain 2/2 to neuropathic pain (incision induced vs. radiation induced?) vs. pain associated with recent hernia surgery/hernia. Lower differential: bladder spasms -continues to occur intermittently, severe when present -Per patient this has happened for several months even prior to recent hernia surgery, states pain travels in "[place]" -CT abd/pelvis above, US scrotum above -Has chronic indwelling bermudez catheter, replaced 09/28/20 -UA + but UCx neg. -Per urologist, because lower on differential with bladder spasms, do not treat currently -Records still not received from [facility] today from recent hospitalization. Per grandson, nobody has been able to give clear cause,diagnosis of penile pain -Perhaps needs more time for gabapentin 100 mg PO BID to kick in or may need increased dose. C/w tramadol PRN, tylenol PRN -It is very highly likely that this pain will need o/p pain management, as I explained to patient and grandson. We will not be able to completely control it here but can try those meds above prior to discharge. UTI, recurrent and likely chronically colonized and has chronic indwelling bermudez catheter -Changed bermudez 09/01/20, no dysuria -UA +, afebrile, WBC wnl, UCx NG -Stopped ceftriaxone 09/29/20, c/w home prophylactic abx Bilateral hydronephrosis and hydroureter possibly secondary to obstruction distal ureters by tumor or radiation induced edema -Cr wnl -CT above -According to med/onc notes, hydronephrosis is chronic and was improving on the left side in 08/2020 -Monitor u/o -Urology: A decision will need to be made in consultation with medical oncology regarding the need for urinary diversion by either cystoscopy and placement of bilateral internal ureteral catheters were bilateral nephrostomy placement. In view of his recent bladder tumor resection, radiation therapy and chronic indwelling Bermudez catheter it may be difficult to visualize ureteral orifice is on both sides in order to place retrograde internal ureteral catheters. If this is not possible then bilateral precarious nephrostomy tubes would be the next option to preserve renal function if this is of course management the patient wishes to pursue. -F/u with urology, med/onc after discharge Physical deconditioning, ? failure to thrive, weakness -Increased falls at home, decreased PO to fluids and food, cancer patient -Please refer to PT/OT notes -Patient will require a wheelchair due to limited ability to safely ambulate. The patient's mobility limitations significantly impairs his ability to participate in toileting, feeding and bathing and his mobility cannot be resolved with a walker. cT2N0 invasive bladder cancer -Per history deemed not a candidate for cystectomy -S/p transurethral resection of bladder tumor greater than 5 cm andleft ureteral stent placement (06/07/2020). -PET scan 07/06/2020: No abnormal hypermetabolic uptake seen on scintigraphy. Improvement noted in the bladder mass. No scintigraphic evidence of metastasis. -Started concurrent chemotherapy RT 07/27/2020. Received cisplatin chemotherapy. Per grandson, no longer getting either treatment -Follows with Dr. Damon med/onc, Dr. Burger rad/onc as o/p TYRA, chronic -H/H stable -Daily CBC ? 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 Patient lives with sickly . F/u PT/OT records. Awaiting [facility] records. Likely home with services in the next several days. VS, I&O, 24H, [facility] Vital Signs/I&O Vital Signs Date Time Temp Pulse Resp B/P (MAP) Pulse Ox O2 Delivery O2 Flow Rate FiO2 09/30/20 14:00 97.1 65 18 149/81 (103) 97 Room Air I&O- Last 24 Hours up to 6 AM 09/30/20 06:00 Intake Total 3090 ml Output Total 2050 ml Balance 1040 ml Laboratory Data 24H LABS Laboratory Tests 2 09/30/20 05:44: Nucleated Red Blood Cells % (auto) 0.0, Anion Gap 8, Glomerular Filtration Rate > 60.0, Calcium Level 8.9, Total Bilirubin 0.2, Aspartate Amino Transf (AST/SGOT) 19, Alanine Aminotransferase (ALT/SGPT) 23, Alkaline Phosphatase 74, Total Protein 5.5L, Albumin 2.6L, Albumin/Globulin Ratio 0.9 CBC/BMP Laboratory Tests 09/30/20 05:44 Microbiology Microbiology 09/28/20 Urine Culture - Final, Complete Erica Michael MD Sep 30, 2020 18:56
[2020-09-30] MEDS: TAMSULOSIN 0.4 MG CAP PO SCH (20:14)
[2020-09-30 22:00] VITALS: BP 147/83
[2020-10-01] MEDS: traMADol 50 MG TAB PO PRN (02:55)
[2020-10-01] MEDS: ACETAMINOPHEN TAB 650MG DOSE (2X325MG) PO PRN (04:04)
[2020-10-01] MEDS: NS 1,000 ML IV SCH (04:06)
[2020-10-01 06:00] VITALS: BP 142/79
[2020-10-01 07:02] LABS: HEMATOCRIT 31.3 % (42.0-52.0); MEAN CORPUSCULAR HEMOGLOBIN 29.9 pg (27.0-33.0); MEAN CORPUSCULAR HGB CONC 31.9 g/dl (32.0-36.5); MEAN CORPUSCULAR VOLUME 93.4 fl (80.0-96.0); PLATELET COUNT, AUTOMATED 290 10^3/uL (150-450); RED BLOOD COUNT 3.35 10^6/uL (4.30-6.10); WHITE BLOOD COUNT 7.6 10^3/uL (4.0-10.0)
[2020-10-01 07:35] LABS: ALBUMIN 2.5 GM/DL (3.2-5.2); ALT/SGPT 19 U/L (12-78); BILIRUBIN,TOTAL 0.2 MG/DL (0.2-1.0); BLOOD UREA NITROGEN 9 MG/DL (7-18); CALCIUM LEVEL 8.8 MG/DL (8.8-10.2); CARBON DIOXIDE LEVEL 25 MEQ/L (21-32); CHLORIDE LEVEL 110 MEQ/L (98-107); GLOMERULAR FILTRATION RATE > 60.0 (>35); GLUCOSE, FASTING 112 MG/DL (70-100); POTASSIUM SERUM 3.8 MEQ/L (3.5-5.1); SODIUM LEVEL 141 MEQ/L (136-145); TOTAL PROTEIN 5.2 GM/DL (6.4-8.2)
--- NOTE | 2020-10-01 08:08 | IPNPDOC ---
Subjective Review oF Systems Chief Complaint The patient is a 84-year-old male admitted with a reason for visit of Failure To Thrive In Adult/Penile Pain. Events since Last Encounter The patient is only asleep this morning. He has not awakened Vital signs remained afebrile last 24 hours. Morning labs: WBC 7600, hemoglobin 10.0 g hematocrit 31.3%, creatinine 0.9, BUN is 9 Urine culture no growth Objective Physical Examination General Exam: Other (thin pale frail appearing male lying in bed in no acute distress) Vital Signs/I&O Vital Signs Date Time Temp Pulse Resp B/P (MAP) Pulse Ox O2 Delivery O2 Flow Rate FiO2 10/01/20 06:00 97.2 71 19 142/79 (100) 100 Room Air I&O- Last 24 Hours up to 6 AM 10/01/20 06:00 Intake Total 3480 ml Output Total 2750 ml Balance 730 ml Laboratory Data Labs 24H Laboratory Tests 2 10/01/20 06:44: Nucleated Red Blood Cells % (auto) 0.0, Anion Gap 6L, Glomerular Filtration Rate > 60.0, Calcium Level 8.8, Total Bilirubin 0.2, Aspartate Amino Transf (AST/SGOT) 11, Alanine Aminotransferase (ALT/SGPT) 19, Alkaline Phosphatase 73, Total Protein 5.2L, Albumin 2.5L, Albumin/Globulin Ratio 0.9 CBC/BMP Laboratory Tests 10/01/20 06:44 Microbiology Microbiology 09/28/20 Urine Culture - Final, Complete Assessment/Plan Date Seen The patient was seen on 10/01/20. Patient Summary Assessment: 1. 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 Bilateral hydronephrosis with preservation of renal function Plan/VTE VTE Prophylaxis Ordered?: Yes Plan Continue present care, close observation VITALIY OCHOA MD Oct 01, 2020 08:08
[2020-10-01] MEDS: ENOXAPARIN 30MG/0.3ML SYRINGE (J1650 PER 10MG) SC SCH (08:58)
[2020-10-01] MEDS: NITROFURANTOIN (MACROBID) 100 MG CAP PO SCH (08:58)
[2020-10-01] MEDS: GABAPENTIN 100 MG CAP PO SCH (08:58)
[2020-10-01] MEDS ORDERED: TRAM50TA2 PO (12:14)
[2020-10-01] MEDS ORDERED: GABA-1171 PO (12:14)
--- NOTE | 2020-10-01 20:27 | DS.PDOC ---
Discharge Summary General Date of Admission Sep 28, 2020 at 15:27 Date of Discharge 10/01/2020 Discharge Summary PRIMARY CARE PHYSICIAN: Dr. Hopkins ATTENDING AT TIME OF DISCHARGE: Dr. Sonny Etienne, DO DISCHARGE DIAGNOS(E)S: Intermittent penile/scrotal pain secondary to unknown etiology, suspicion for neuropathic pain from radiation versus recent surgery. 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 After some trauma there and appears that gabapentin and occasional tramadol seems to be helpful for him, and he will be sent home on this. Urology was consulted during this admission for evaluation of new finding of bilateral hydronephrosis. He will need very close continued follow-up regarding renal function at this time, and the decision to attempt bilateral retrograde internal ureteral catheters versus performing percutaneous bilateral nephrostomy tubes would be something that will/should be discussed between his urologist and his oncologist. For the time being, his renal function continues to be within normal limits, therefore this can be monitored/followed as an outpatient. PHYSICAL EXAMINATION ON DISCHARGE: GENERAL: Awake, alert, oriented 3. He does not appear to be in any acute distress at this time. CARDIOVASCULAR EXAMINATION: Regular rate and rhythm, with no rubs, gallops, or murmur. RESPIRATORY EXAMINATION: Clear to auscultation bilaterally with no wheezes, rales, or rhonchi. ABDOMINAL EXAMINATION: Soft, nontender, nondistended. Bowel sounds present. Balderas catheter present, this apparently was replaced on 09/28/2020. EXTREMITIES: No clubbing or edema noted. 2+ pulses in the radial bilaterally. DISPOSITION: Home with services, which has already been arranged by the discharge planning team. Their efforts in this matter greatly appreciated. DISCHARGE INSTRUCTIONS: He will need close follow-up with his primary care provider, medical oncology oncologist Dr. Damon, radiation oncologist Dr. Burger, and urologist Dr. Lance. If symptoms return, or if you experience worsening of your symptoms, please call your doctor or return to the emergency department. Vital Signs/I&Os Vital Signs Date Time Temp Pulse Resp B/P (MAP) Pulse Ox O2 Delivery O2 Flow Rate FiO2 10/01/20 06:00 97.2 71 19 142/79 (100) 100 Room Air I&O- Last 24 Hours up to 6 AM 10/01/20 05:59 Intake Total 3480 ml Output Total 3150 ml Balance 330 ml Laboratory Data Labs 24H Laboratory Tests 2 10/01/20 06:44: Nucleated Red Blood Cells % (auto) 0.0, Anion Gap 6L, Glomerular Filtration Rate > 60.0, Calcium Level 8.8, Total Bilirubin 0.2, Aspartate Amino Transf (AST/SGOT) 11, Alanine Aminotransferase (ALT/SGPT) 19, Alkaline Phosphatase 73, Total Protein 5.2L, Albumin 2.5L, Albumin/Globulin Ratio 0.9 CBC/BMP Laboratory Tests 10/01/20 06:44 Microbiology Microbiology 09/28/20 Urine Culture - Final, Complete Discharge Medications Scheduled Ferrous Sulfate (Ferrous Sulfate) 325 Mg Tablet.dr, 325 MG PO 3XW Gabapentin (Gabapentin) 100 Mg Capsule, 100 MG PO BID Tamsulosin HCl (Flomax) 0.4 Mg Capsule, 0.4 MG PO QHS, (Reported) Scheduled PRN Albuterol Sulfate (Proair Hfa) 8.5 Gm Hfa.aer.ad, 2 PUFF INH Q6H PRN for SHORTNESS OF BREATH, (Reported) Ipratropium/Albuterol Sulfate (Iprat-Albut 0.5-3(2.5) mg/3 ml) 3 Ml Ampul.neb, 1 KITTY NEB Q6H PRN for SHORTNESS OF BREATH, (Reported) Ondansetron HCl (Ondansetron HCl) 8 Mg Tablet, 8 MG PO Q12H PRN for NAUSEA OR VOMITING Prochlorperazine Maleate (Prochlorperazine Maleate) 10 Mg Tablet, 10 MG PO Q6H PRN for NAUSEA OR VOMITING Tramadol HCl (Tramadol HCl) 50 Mg Tablet, 50 MG PO Q6HP PRN for MODERATE PAIN (PS 5-7) Miscellaneous Medications [Pt Comment] , (Reported) MED REC OBTAINED FROM [facility] IN [facility] AT PATIENT REQUEST Allergies Coded Allergies: No Known Allergies (Unverified , 08/04/20) SONNY ETIENNE DO Oct 01, 2020 20:27
== END 2020-10-01 14:38 | disposition home health service (06) | DRG 729 ==
LOC: M ED 13:38 → M ED INP 15:27 → ENRESERV 17:28 → M MSPAV 18:05
PROVIDERS: ADMIT Internal Medicine; ATTEND Neuromusculoskeletal Medicine & OMM
DX: N50.89 Other specified disorders of the male genital organs (principal); N13.1 Hydronephrosis with ureteral stricture, not elsewhere classified; J62.0 Pneumoconiosis due to talc dust; C67.9 Malignant neoplasm of bladder, unspecified; K40.90 Unilateral inguinal hernia, without obstruction or gangrene, not specified as recurrent; R62.7 Adult failure to thrive; D50.9 Iron deficiency anemia, unspecified; N40.0 Benign prostatic hyperplasia without lower urinary tract symptoms; Z79.899 Other long term (current) drug therapy; Z96.0 Presence of urogenital implants; Z92.3 Personal history of irradiation; Z92.21 Personal history of antineoplastic chemotherapy; Z87.891 Personal history of nicotine dependence; Z72.3 Lack of physical exercise; Z20.822 Contact with and (suspected) exposure to COVID-19; Z87.440 Personal history of urinary (tract) infections

== ENCOUNTER → 2020-09-28 | Outpatient (CLI) | payer MEDICARE ==
[~2020-09-28] MED LIST changes: +IPRA0.00 NEB; +NITR100C2 PO; +PROAAER10 INH; +PT COMMENT; +SULF1TAB93; +TAMS1CAP17
--- NOTE | 2020-09-28 13:47 | RADENCPD ---
Date/Time of Encounter Date of Encounter: Sep 28, 2020 Time of Encounter: 13:33 Encounter Giacomo came in for an urgent follow up today at his grandson's request. Briefly Giacomo completed concurrent chemoradiation for muscle invasive bladder cancer on 08/24/20 55 Gy in 20 fractions. He was noted to have a UTI toward the end of his course with culture growing Enterobacter spp. he was treated with Bactrim. Upon completion of therapy he was feeling better. On 09/06/20 his grandson called me and reported that he had been diagnosed with recrudescent UTI at [facility] and again treated with antibiotics. Since that call he apparently has undergone open right inguinal hernia repair (unclear if due to strangulation or elective) as well as Bermudez catheter placement. He comes in today as he was noted to be lethargic and complaining of increased pelvic pain. He is not eating or drinking well at home. On exam he is frail appearing, bermudez is patent, urine concentrated but clear. Right inguinal incision is well-healed. Weight is 130 lbs, from 145 on 08/16/20 VS T 98 P 77 RR 18 BP 133/77 O2 97% Pain 5/10 He is lethargic appearing but responds appropriately to questions. He has resting tremor in the BL UE. Assessment: Failure to thrive Dehydration Possible recurrent UTI in setting of chronic Bermudez Low concern for recurrent malignancy at this latency from treatment and given recent imaging of the abdomen and pelvis (available on [employer]) which is stable Plan: Refer to ED for assessment Will follow his course peripherally Contact is grandson Thomas Neffeneuve ([phone]) THOMPSON WILLIS MD Sep 28, 2020 13:47
== END ==
LOC: M ONCR 11:53
PROVIDERS: ATTEND General Practice
DX: C67.8 Malignant neoplasm of overlapping sites of bladder (principal)

== ENCOUNTER → 2020-10-28 | Outpatient (REF) | payer MEDICARE ==
[~2020-10-28] MED LIST changes: +BACTDSTA; +GABA-1171 PO; +IPRA0.00 NEB; +NITR100C2 PO; +PROAAER10 INH; +PT COMMENT; +TAMS1CAP17; +TRAM50TA2 PO
== END ==
LOC: M SMT 12:46
PROVIDERS: ATTEND Urology
DX: C67.9 Malignant neoplasm of bladder, unspecified (principal); R30.0 Dysuria

== ENCOUNTER → 2020-12-08 | Outpatient (CLI) | payer MEDICARE ==
[~2020-12-08] MED LIST changes: +ACET1TAB16 PO; +ASPI-404 PO; +ATIV1TAB10 PO; +COLA100C5 PO; +K-TA10TA2 PO; +LASI20TA3 PO; +MIRA3350 PO; +MYRB25TA PO; +NITR-67 PO; +OXYB-54 PO; +OXYB10TA23 PO
--- NOTE | 2020-12-08 15:49 | RADONC ---
Radiation Oncology Hx/FUP Radiation Oncology Hx/FUP Date of Service: Dec 08, 2020 Pt Identifier Giacomo Romero is a 84 year old male seen for a followup visit today at the department of radiation oncology for a history of [id number] bladder cancer s/p TURBT on 06/07/[address] Lance. He subsequently completed chemoradiation 55 Gy in 20 fractions with weekly cisplatin. He has since experienced myriad urinary symptoms and recurrent UTIs for which he has been hospitalized both here and in [place]. Diagnosis/Treatment History Oncologic History 2016 Presented to [place] urologist with abdominal pain and hematuria and underwent cystoscopy which revealed a bladder tumor. He was lost to follow up until 2019. He had a CT abdomen on 05/26/20 which showed a >7cm pedunculated mass in the bladder and associated hydronephrosis. He had TURBT on 06/07/20. Muscle invasion was identified on pathology. He had a staging PET-CT on 07/06/19 which is negative for distant disease. Has a large right inguinal hernia containing bowel. 07/27/20-08/24/20 chemoradiation 55 Gy in 20 fractions with weekly [address] CT abdomen and pelvis on 09/28/20 without evidence of recurrence, but with moderate hydronephrosis BL. 09/28/20-10/01/20 Admitted to [facility] with FTT. 10/30/20 Cysto (Natalio) negative. Recent data: Urine culture [place] 11/25/20 Staph epidermadis Jang-sensitive Interval History Here with grandson Thomas. Recently lost his of 70 years, grieving. He completed 14 days of bactrim yesterday. He has had no less than 6 diagnosed UTIs in the last 4 months. Still voiding urine sediment, no hematuria macroscopically. He has constant urethral irritation feels itching and burning in the penis when he has to void. Has high degree of urgency and frequency q30m day and night. Has difficulty with stream and emptying. Unable to rest comfortably. He is drinking ensure and eating somewhat, but has been having intermittent constipation as well, BMs are hard and q1-2 days. He has been tolerating oxybutynin and flomax at current doses without any discernible side effects. He and Thomas state clearly that they do not want any more invasive diagnostics or cancer-directed treatments. Giacomo stated goal would be to spend less time on the toilet. Current Therapy Surveillance Stage Stage 2 urothelial cancer [id number] Social History: 30 pack year former smoker Does not drink Worked in a [employer] Allergies / Meds Allergies: Coded Allergies: No Known Allergies (Unverified , 08/04/20) Home Meds Active Scripts Docusate Sodium (Colace) 100 Mg Capsule, 1 CAP PO BID for 30 Days, #60 CAP 3 Refills Prov:THOMPSON WILLIS MD 12/08/20 Polyethylene Glycol 3350 (Miralax) 119 Gm Powder, 17 GRAM PO QHS for constipation, #255 GRAM dissolve in water Prov:THOMPSON WILLIS MD 12/08/20 Oxybutynin Chloride (Oxybutynin Chloride ER) 10 Mg Tab.er.24, 1 TAB PO DAILY for 30 Days, #30 TAB 3 Refills Prov:THOMPSON WILLIS MD 12/08/20 Nitrofurantoin Macrocrystal (Nitrofurantoin) 100 Mg Capsule, 1 CAP PO DAILY for 30 Days, #30 CAP Prov:THOMPSON WILLIS MD 12/08/20 Tamsulosin HCl (Flomax) 0.4 Mg Capsule, 2 CAP PO QPM for 30 Days, #60 CAP 3 Refi lls Prov:THOMPSON WILLIS MD 12/08/20 Reported Medications Aspirin/Calcium Carbonate/Mag (Bufferin 325 mg Tablet) 325 Mg Tablet, 325 MG PO, TAB 12/08/20 Acetaminophen with Codeine (Acetaminophen-Cod #3 Tablet) 1 Each Tablet, 1 TAB PO Q6H PRN for PAIN, #20 TAB MDD = 4 12/08/20 Lorazepam (Ativan) 0.5 Mg Tablet, 0.5 MG PO Q4HP PRN for ANXIETY/AGITATION MDD 3 MG, #30 TAB Use sublingually if unable to swallow 12/08/20 Potassium Chloride (K-Tab ER) 10 Meq Tablet.er, 1 TAB PO DAILY for 30 Days, #30 TAB 12/08/20 Furosemide (Lasix) 20 Mg Tablet, 1 TAB PO DAILY for 30 Days, #30 TAB 12/08/20 [Pt Comment] No Conflict Check MED REC OBTAINED FROM [facility] AT PATIENT REQUEST 09/28/20 Ipratropium/Albuterol Sulfate (Iprat-Albut 0.5-3(2.5) mg/3 ml) 3 Ml Ampul.neb, 1 KITTY NEB Q6H PRN for SHORTNESS OF BREATH, KITTY 09/28/20 Albuterol Sulfate (Proair Hfa) 8.5 Gm Hfa.aer.ad, 2 PUFF INH Q6H PRN for SHORTNESS OF BREATH, INHALER 09/28/20 Discontinued Reported Medications Tamsulosin HCl (Flomax) 0.4 Mg Capsule, 0.4 MG PO DAILY, CAP 12/08/20 Discontinued Scripts Oxybutynin Chloride (Oxybutynin Chloride ER) 5 Mg Tab.er.24, 5 MG PO DAILY for 30 Days, #30 TAB 5 Refills Prov:THOMPSON WILLIS MD 11/30/20 Tramadol HCl (Tramadol HCl) 50 Mg Tablet, 50 MG PO Q6HP PRN for MODERATE PAIN (PS 5-7) MDD 4 for 4 Days, #24 TAB Prov:SONNY ETIENNE DO 10/01/20 Gabapentin (Gabapentin) 100 Mg Capsule, 100 MG PO BID for 30 Days, #60 CAP Prov:SONNY ETIENNE DO 10/01/20 Review of Systems Review of Systems Constitutional: Reports: Fatigue; Denies: Weight Loss Eyes: Denies: Pain HEENT: Denies: Head Aches Skin: Denies: Rash Pulmonary: Denies: Dyspnea Cardiovascular: Denies: Chest Pain Gastrointestinal: Reports: Constipation; Denies: Abdominal Pain, Hematochezia Genitourinary: Reports: Dysuria, Frequency; Denies: Incontinence, Hematuria, Retention Musculoskeletal: Denies: Back pain Neurological: Denies: Weakness, Numbness Physical Examination Diagnostic and Laboratory Diagnostic Review Radiologic images, relevant labs and pathology reports were personally reviewed and discussed with Mr. Romero. Assessment and Plan Impression Assessment Mr. Romero is a 84 year old male with a history of [id number] bladder cancer s/p TURBT on 06/07/[address] Lance. He subsequently completed chemoradiation 55 Gy in 20 fractions with weekly cisplatin. He has since experienced myriad ur inary symptoms and recurrent UTIs for which he has been hospitalized both here and in [place]. They do not want to pursue any additional invasive diagnostics or cancer- directed therapy. I think this is reasonable and thus we will focus on symptoms and comfort. He is struggling mightily with urinary symptoms. I explained that he had some significant obstructive voiding symptoms prior to treatment (IPSS 25) and that these have decompensated due to the chemoradiation. It is reasonable to expect that with time gradual improvement will happen, but the expectation is that he will always likely have urinary bother, which we can try to minimize with medications. On reassuring thing today is that his weight is up and he is eating and drinking. With respect to the recurrent UTI, I think it is reasonable to give macrobid 100 mg daily prophylaxis for a month and see if it is of benefit. I explained that the data on the utility of this is mixed and that it may select for more recalcitrant pathogens, but in his case it may be helpful. For his urinary bother, his insurance does not cover myrbetriq, so I will increase the dose of the oxybutynin to 10 mg daily. In turn I will also increase his flomax to 0.8 mg QPM. I also encouraged them to add cranberry juice (100%) twice daily. For his bowels, I suggested they start colace BID and miralax QHS. Finally we discussed getting him a supply of condom catheters for PRN use (such as when he is visiting or in the car) so that he doesn't have to spend as much time in the bathroom. We agreed to follow up in person in 2 weeks. I will check a UA at that time to see if the urine clears with the prophylactic antibiotic. Performance Status ECOG 3 Plan Medication adjustments as described above Follow up in 2 weeks UA in 2 weeks Mr. Romero was encouraged to call with questions or concerns in the interim period. Billing Statement Total time of [39] minutes was spent preparing for the visit [2], obtaining HPI [7], examining the patient [2], reviewing diagnostic tests [2], discussing management options [15], coordinating care [1], and writing this note [10]. THOMPSON WILLIS MD Dec 08, 2020 15:49
== END ==
LOC: M ONCR 13:30
PROVIDERS: ATTEND General Practice
DX: C67.8 Malignant neoplasm of overlapping sites of bladder (principal); Z63.4 Disappearance and death of family member; Z79.899 Other long term (current) drug therapy; Z87.440 Personal history of urinary (tract) infections; Z87.891 Personal history of nicotine dependence

== ENCOUNTER → 2021-01-06 | Outpatient (CLI) | payer MEDICARE ==
[~2021-01-06] MED LIST changes: +AZO-95TA3 PO; +DEXA4TA PO; +METH1CAP PO; +MORP1SOL PO; +MORP1SOL4 PO
--- NOTE | 2021-01-12 21:06 | RADENCPD ---
Date/Time of Encounter Date of Encounter: Jan 06, 2021 Time of Encounter: 10:10 Encounter Spoke to Thomas, Giacomo remains glued to the toilet with irritative voiding symptoms. He has discontinued all urinary medications except for macrobid and notes no significant changes. Discussed next steps. We will try another pulse of steroids and start urised, which is a combination pill. If this doesn't work he may benefit from palliative bermudez catheter or SP tube. Can ask Dr. Lance about this. We also discussed hospice referral, which is a reasonable decision given Giacomo continued functional decline. I will also send a commode chair script at this time. We will talk again on the phone next week. Billing statement: 7 minutes spent via telephone providing direct patient care THOMPSON WILLIS MD Jan 12, 2021 21:06
== END ==
LOC: M ONCR 11:31
PROVIDERS: ATTEND General Practice
DX: C67.8 Malignant neoplasm of overlapping sites of bladder (principal)